=== PATIENT | female | born 1990 | race Caucasian/White ===

== ENCOUNTER → 2024-09-22 | Outpatient (CLI) | payer OTHER ==
[2024-09-22 14:53] LABS: HCG, SERUM QUANTITATIVE < 2.6 MIU/ML (<4.2)
[2024-09-22 14:57] LABS: TOTAL 25(OH) VITAMIN D 31.2 NG/ML (20.0-100.0)
[2024-09-22 14:58] LABS: FOLLICLE STIMULATING HORMONE 5.9 mIU/ML; LUTEINIZING HORMONE 3.1 mIU/ML
[2024-09-22 14:59] LABS: ESTRADIOL 30.3 PG/ML
[2024-09-22 15:09] LABS: HEPATITIS B SURFACE ANTIGEN NEGATIVE (NEGATIVE)
[2024-09-22 15:16] LABS: Trichomonas vaginalis (AMP) NOT DETECTED (NEGATIVE)
[2024-09-22 15:40] LABS: GC DNA AMPLIFICATION NEGATIVE (NEGATIVE)
[2024-09-22 18:17] LABS: HEPATITIS C VIRUS ABY INDEX 0.03 INDEX (<0.8)
[2024-09-24 14:52] LABS: CYTOMEGALOVIRUS ANTIBODY IGG > 10.00 U/mL (<0.60); CYTOMEGALOVIRUS IgM ANTIBODY < 30.00 AU/mL (<30.00); HERPES ZOSTER, VARICELLA IgG 1.59 S/CO (>=1.00)
== END ==
LOC: M LAB 12:42
DX: Z31.49 Encounter for other procreative investigation and testing (principal); E55.9 Vitamin D deficiency, unspecified; Z31.430 Encounter of female for testing for genetic disease carrier status for procreative management

== ENCOUNTER → 2024-11-26 | Outpatient (CLI) | payer OTHER | LOC: M WHC 09:51 | PROVIDERS: ATTEND Specialist | DX: N92.6 Irregular menstruation, unspecified (principal) ==

== ENCOUNTER → 2025-01-28 | Outpatient (CLI) | payer OTHER ==
[2025-01-28 17:43] LABS: PLATELET COUNT, AUTOMATED 229 10^3/uL (150-450)
[2025-01-28 18:31] LABS: HIV 1&2 SCREEN NEGATIVE (NEGATIVE)
[2025-01-28 18:39] LABS: HEPATITIS C VIRUS ABY INDEX < 0.02 INDEX (<0.8)
[2025-01-28 18:53] LABS: Trichomonas vaginalis (AMP) NOT DETECTED (NEGATIVE)
[2025-01-28 19:16] LABS: GC DNA AMPLIFICATION NEGATIVE (NEGATIVE)
== END ==
LOC: M PLALAB 15:36
PROVIDERS: ATTEND Specialist
DX: Z34.01 Encounter for supervision of normal first pregnancy, first trimester (principal)

== ENCOUNTER → 2025-03-16 | Outpatient (REF) | payer OTHER | LOC: M PLALAB 13:38 | PROVIDERS: ATTEND Nurse Practitioner Family | DX: N89.8 Other specified noninflammatory disorders of vagina (principal) ==

== ENCOUNTER → 2025-03-29 | Outpatient (CLI) | payer OTHER | LOC: M RAD 15:24 | PROVIDERS: ATTEND Specialist | DX: Z36.89 Encounter for other specified antenatal screening (principal); Z3A.19 19 weeks gestation of pregnancy ==

== ENCOUNTER → 2025-05-05 | Outpatient (CLI) | payer OTHER ==
[2025-05-05 14:59] LABS: PLATELET COUNT, AUTOMATED 231 10^3/uL (150-450)
[2025-05-05 15:03] LABS: GLUCOSE CHALLENGE TEST 1 HOUR 151 MG/DL (LESS THAN 140)
[2025-05-05 15:40] LABS: HIV 1&2 SCREEN NEGATIVE (NEGATIVE)
[2025-05-05 15:48] LABS: HEPATITIS C VIRUS ABY INDEX < 0.02 INDEX (<0.8)
[2025-05-05 16:12] LABS: Trichomonas vaginalis (AMP) NOT DETECTED (NEGATIVE)
[2025-05-05 16:36] LABS: GC DNA AMPLIFICATION NEGATIVE (NEGATIVE)
== END ==
LOC: M PLALAB 09:47
PROVIDERS: ATTEND Obstetrics & Gynecology
DX: O09.812 Supervision of pregnancy resulting from assisted reproductive technology, second trimester (principal); Z3A.00 Weeks of gestation of pregnancy not specified

== ENCOUNTER → 2025-05-12 | Outpatient (CLI) | payer OTHER | LOC: M LAB 06:55 | PROVIDERS: ATTEND Obstetrics & Gynecology | DX: O99.810 Abnormal glucose complicating pregnancy (principal) ==

== ENCOUNTER → 2025-05-31 | Outpatient (CLI) | payer OTHER ==
[2025-05-31 11:08] LABS: PLATELET COUNT, AUTOMATED 217 10^3/uL (150-450)
[2025-05-31 11:11] LABS: LDH LACTATE DEHYDROGENASE 200 U/L (120-246)
[2025-05-31 11:12] LABS: ALT/SGPT 76 U/L (7.0-40); AST/SGOT 54 U/L (<34); CREATININE FOR GFR 0.74 MG/DL (0.55-1.30); GLOMERULAR FILTRATION RATE > 90.0 (>60)
[2025-05-31 11:33] LABS: TOTAL PROTEIN,RANDOM URINE 18.9 MG/DL (0.0-14.0)
== END ==
LOC: M PLALAB 08:25
PROVIDERS: ATTEND Nurse Practitioner Family
DX: R03.0 Elevated blood-pressure reading, without diagnosis of hypertension (principal)

== ENCOUNTER → 2025-06-23 | Outpatient (CLI) | payer OTHER ==
[~2025-06-23] MED LIST: ACET-907 PO; CLAR5TAB11 PO; MULTTAB20 PO; PEPC1TAB5 PO
[2025-06-23 15:17] LABS: APPEARANCE, URINE HAZY (CLEAR); BACTERIA, URINE AUTO NEGATIVE (NEGATIVE); BILIRUBIN, URINE AUTO NEGATIVE (NEGATIVE); BLOOD, URINE BLOOD NEGATIVE (NEGATIVE); GLUCOSE, URINE (UA) AUTO NEGATIVE (NEGATIVE); KETONE, URINE AUTO NEGATIVE (NEGATIVE); LEUKOCYTE ESTERASE, URINE AUTO NEGATIVE (NEGATIVE); MUCUS, URINE SMALL (NEGATIVE); NITRITE, URINE AUTO NEGATIVE (NEGATIVE); PROTEIN, URINE AUTO 3+ mg/dL (NEGATIVE); RBC, URINE AUTO 0 /HPF (0-3); SPECIFIC GRAVITY URINE AUTO 1.019 (1.002-1.035); SQUAMOUS EPITHELIAL CELL UR AU 0 /HPF (0-6); UROBILINOGEN, URINE AUTO 0.2 mg/dL (0.0-2.0); WBC, URINE AUTO 2 /HPF (0-3)
[2025-06-23 15:18] LABS: PLATELET COUNT, AUTOMATED 228 10^3/uL (150-450)
[2025-06-23 15:45] LABS: LDH LACTATE DEHYDROGENASE 249 U/L (120-246)
[2025-06-23 15:46] LABS: ALT/SGPT 48 U/L (7.0-40); AST/SGOT 40 U/L (<34); CREATININE FOR GFR 0.81 MG/DL (0.55-1.30); GLOMERULAR FILTRATION RATE > 90.0 (>60)
[2025-06-23 15:50] LABS: TOTAL PROTEIN,RANDOM URINE 613.1 MG/DL (0.0-14.0)
== END ==
LOC: M PLALAB 14:30
PROVIDERS: ATTEND Advanced Practice Midwife
DX: Z34.83 Encounter for supervision of other normal pregnancy, third trimester (principal)

== ENCOUNTER 2025-06-24 15:08 | Outpatient (CLI) | payer OTHER ==
[~2025-06-24] VITALS: Ht 157.5 cm; Wt 101.4 kg
[2025-06-24] MEDS ORDERED: MULTTAB20 PO (15:28)
[2025-06-24] MEDS ORDERED: PEPC1TAB5 PO (15:28)
[2025-06-24 15:32] VITALS: BP 136/84
[2025-06-24] MEDS ORDERED: HOME MED LIST COMPLETE! XX SCH (15:40)
[2025-06-24] MEDS: BETAMETHASONE SOLUSPAN 6 MG/ML 5 ML VIAL IM ONE (16:11)
== END 2025-06-24 17:45 | disposition home or self-care (01) ==
LOC: M LDO 15:08
PROVIDERS: ATTEND Advanced Practice Midwife
DX: O14.93 Unspecified pre-eclampsia, third trimester (principal); O09.813 Supervision of pregnancy resulting from assisted reproductive technology, third trimester; O26.23 Pregnancy care for patient with recurrent pregnancy loss, third trimester; Z3A.31 31 weeks gestation of pregnancy
CPT/HCPCS: 59025; 76816; 76820; 96372; G0463; J0702

== ENCOUNTER 2025-06-25 15:44 | Outpatient (CLI) | payer OTHER ==
[~2025-06-25] VITALS: Ht 157.5 cm; Wt 103.1 kg
[~2025-06-25 15:44] MED LIST changes: -ACET-907 PO; -CLAR5TAB11 PO
[2025-06-25 16:00] VITALS: BP 139/73; O2SAT 100
[2025-06-25] MEDS ORDERED: HOME MED LIST COMPLETE! XX SCH (16:05)
[2025-06-25] MEDS: BETAMETHASONE SOLUSPAN 6 MG/ML 5 ML VIAL IM ONE (16:12)
== END 2025-06-25 16:23 | disposition home or self-care (01) ==
LOC: M LDO 15:44
PROVIDERS: ATTEND Obstetrics & Gynecology
DX: O09.813 Supervision of pregnancy resulting from assisted reproductive technology, third trimester (principal); O14.93 Unspecified pre-eclampsia, third trimester; Z3A.31 31 weeks gestation of pregnancy
CPT/HCPCS: 59025; 96372; G0463; J0702

== ENCOUNTER 2025-07-02 12:25 | Outpatient (CLI) | payer OTHER ==
[2025-07-02] VITALS (10 sets, daily range): BP systolic 135–167; BP diastolic 89–107
[~2025-07-02] VITALS: Ht 157.5 cm; Wt 105.1 kg
[2025-07-02] MEDS ORDERED: ACET-907 PO (13:04)
[2025-07-02] MEDS ORDERED: CLAR5TAB11 PO (13:04)
[2025-07-02 14:22] LABS: TOTAL PROTEIN,RANDOM URINE 1668.0 MG/DL (0.0-14.0)
[2025-07-02 14:45] LABS: BASO # 0.0 10^3/uL (0.0-0.2); BASO % 0.3 % (0.0-1.0); EOS # 0.1 10^3/uL (0.0-0.5); EOS % 1.1 % (0.0-3.0); LYMPH # 1.9 10^3/uL (1.5-5.0); LYMPH % 20.5 % (24.0-44.0); MONO # 0.8 10^3/uL (0.0-0.8); MONO % 8.3 % (2.0-8.0); NEUTROPHILS # 6.3 10^3/uL (1.5-8.5); NEUTROPHILS % 69.5 % (36.0-66.0); PLATELET COUNT, AUTOMATED 194 10^3/uL (150-450)
[2025-07-02 15:10] LABS: LDH LACTATE DEHYDROGENASE 228 U/L (120-246)
[2025-07-02 15:11] LABS: ALT/SGPT 37 U/L (7.0-40); AST/SGOT 38 U/L (<34); CALCIUM LEVEL 8.1 MG/DL (8.5-10.1); CARBON DIOXIDE LEVEL 22 MMOL/L (20-31); CHLORIDE LEVEL 108 MMOL/L (98-107); CREATININE FOR GFR 0.79 MG/DL (0.55-1.30); GLOMERULAR FILTRATION RATE > 90.0 (>60); POTASSIUM SERUM 4.4 MMOL/L (3.5-5.1); SODIUM LEVEL 138 MMOL/L (136-145)
[2025-07-02] MEDS ORDERED: HOME MED LIST COMPLETE! XX SCH (15:35)
[2025-07-02] MEDS: LABETALOL 100 MG TAB PO ONE (15:39)
[2025-07-07] MEDS ORDERED: LABE100T91 PO (07:58)
[2025-07-07] MEDS ORDERED: PROG1CAP9 PO (07:58)
[2025-07-07] MEDS ORDERED: ESTR2TAB3 PO (07:58)
[2025-07-07] MEDS ORDERED: ECOT81TA5 PO (14:09)
[2025-07-07] MEDS ORDERED: FOLI1TAB11 PO (14:09)
[2025-07-07] MEDS ORDERED: VITA100093 PO (14:09)
[2025-07-07] MEDS ORDERED: CHOL500T10 PO (14:09)
[2025-07-07] MEDS ORDERED: PROBCAP2 PO (14:09)
[2025-07-07] MEDS ORDERED: OMEG10002 PO (14:09)
== END 2025-07-02 16:28 | disposition home or self-care (01) ==
LOC: M LDO 12:25
PROVIDERS: ATTEND Obstetrics & Gynecology
DX: O14.93 Unspecified pre-eclampsia, third trimester (principal); O99.353 Diseases of the nervous system complicating pregnancy, third trimester; O09.813 Supervision of pregnancy resulting from assisted reproductive technology, third trimester; O26.23 Pregnancy care for patient with recurrent pregnancy loss, third trimester; G56.03 Carpal tunnel syndrome, bilateral upper limbs; Z3A.34 34 weeks gestation of pregnancy
CPT/HCPCS: 59025; 80053; 82247; 82570; 83615; 84156; 84450; 84460; 84550; 85025; G0463

== ENCOUNTER → 2025-07-08 | Outpatient (CLI) | payer OTHER ==
[~2025-07-08] MED LIST changes: +ACET-907 PO; +CHOL500T10 PO; +CLAR5TAB11 PO; +ECOT81TA5 PO; +ESTR2TAB3 PO; +FOLI1TAB11 PO; +LABE100T91 PO; +OMEG10002 PO; +PROBCAP2 PO; +PROG1CAP9 PO; +VITA100093 PO
[2025-07-08 17:29] LABS: PLATELET COUNT, AUTOMATED 205 10^3/uL (150-450)
== END ==
LOC: M PLALAB 15:27
PROVIDERS: ATTEND Specialist
DX: O14.93 Unspecified pre-eclampsia, third trimester (principal)

== ENCOUNTER 2025-07-11 21:18 | Inpatient (IN) | payer OTHER ==
[~2025-07-11] VITALS: Ht 157.5 cm; Wt 108.5 kg
[2025-07-11] MEDS: BICITRA 30 ML SOLN UDC PO ONE (07:51)
[2025-07-11] MEDS: ceFAZolin SODIUM 3 GM in DEXTROSE 5% (D5W) MINI-BAG PLU 100 ML IV ONE (07:51)
[2025-07-11 21:34] VITALS: BP 144/86
[2025-07-11 21:36] VITALS: BP 144/86
[2025-07-11 21:58] VITALS: BP 156/88
[2025-07-11 22:24] LABS: BASO # 0.1 10^3/uL (0.0-0.2); BASO % 0.6 % (0.0-1.0); EOS # 0.4 10^3/uL (0.0-0.5); EOS % 3.5 % (0.0-3.0); LYMPH # 2.4 10^3/uL (1.5-5.0); LYMPH % 21.9 % (24.0-44.0); MONO # 1.1 10^3/uL (0.0-0.8); MONO % 10.4 % (2.0-8.0); NEUTROPHILS # 6.9 10^3/uL (1.5-8.5); NEUTROPHILS % 63.2 % (36.0-66.0); PLATELET COUNT, AUTOMATED 221 10^3/uL (150-450)
[2025-07-11 22:26] VITALS: BP 171/94
[2025-07-11 22:27] VITALS: BP 164/93
[2025-07-11 22:46] LABS: LDH LACTATE DEHYDROGENASE 290 U/L (120-246)
[2025-07-11 22:47] LABS: ALT/SGPT 39 U/L (7.0-40); AST/SGOT 39 U/L (<34); CREATININE FOR GFR 0.96 MG/DL (0.55-1.30); GLOMERULAR FILTRATION RATE 80.6 (>60)
[2025-07-11] MEDS ORDERED: TRANEXAMIC ACID INJection 1,000 MG in NS 100 ML IV PRN (23:10)
[2025-07-11] MEDS ORDERED: OXYTOCIN INJ 10UNITS/ML 1ML VIAL IM PRN (23:10)
[2025-07-11] MEDS ORDERED: CARBOPROST TROMETHAMINE 250 MCG/ML AMP IM PRN (23:10)
[2025-07-11] MEDS: LR 1,000 ML IV SCH (23:34)
[2025-07-12] VITALS (35 sets, daily range): BP systolic 123–176; BP diastolic 74–99
[2025-07-12] MEDS: LABETALOL 200 MG TAB PO STA ×2 (00:06→17:22)
[2025-07-12] MEDS: CEPACOL LOZENGE PO PRN (00:12)
[2025-07-12] MEDS ORDERED: PHENYLephrine 500MCG 5ML (100MCG/ML) SYRINGE As Ordered ONE (07:13)
[2025-07-12] MEDS ORDERED: ONDANSETRON 4MG/2ML VIAL As Ordered ONE (07:14)
[2025-07-12] MEDS ORDERED: OXYTOCIN 30UNITS IN 0.9% NaCl 500ML IV BAG IV ONE (07:14)
[2025-07-12] MEDS ORDERED: dexAMETHasone 4 MG/ML 1 ML VIAL As Ordered ONE (07:14)
[2025-07-12] MEDS ORDERED: ACETAMINOPHEN 1000MG/100ML IV BAG As Ordered ONE (07:15)
[2025-07-12] MEDS ORDERED: KETOROLAC 30 MG/ML 1 ML VIAL As Ordered ONE (07:15)
[2025-07-12] MEDS ORDERED: MORPHINE PRES-FREE INJ 10 MG/10 ML VIAL As Ordered ONE (07:20)
[2025-07-12 08:43] LABS: CORD GAS ABE A -7.3; CORD GAS HCO3 A 19.9 MMOL/L; CORD GAS O2 SAT A 53.1 %; CORD GAS PCO2 A 46.1 mmHg; CORD GAS PH A 7.253 UNITS; CORD GAS PO2 A 24.1 mmHg; CORD GAS SBC A 17.6 MMOL/L; CORD GAS TCO2 A 21.3 MMOL/L
[2025-07-12 08:45] LABS: CORD GAS ABE V -5.7; CORD GAS HCO3 V 21.3 MMOL/L; CORD GAS O2 SAT V 46.8 %; CORD GAS PCO2 V 47.1 mmHg; CORD GAS PH V 7.274 UNITS; CORD GAS PO2 V 20.7 mmHg; CORD GAS SBC V 18.6 MMOL/L; CORD GAS TCO2 V 22.8 MMOL/L
[2025-07-12] MEDS ORDERED: ANUSOL HC CREAM 30 GM TOP PRN (09:05)
[2025-07-12] MEDS ORDERED: CALCIUM CARBONATE 500 MG CHEW U/D PO PRN (09:05)
[2025-07-12] MEDS ORDERED: PERCOCET 5MG/325MG TAB PO PRN ×2 (09:05)
[2025-07-12] MEDS: LR 1,000 ML IV SCH (09:05)
[2025-07-12] MEDS ORDERED: MORPHINE 4 MG/ML 1 ML VIAL IV PRN (09:05)
[2025-07-12] MEDS: OXYTOCIN DRIP 30 UNITS in IV 1 EA IV SCH (09:05)
[2025-07-12] MEDS ORDERED: RHOGAM 300MCG (1500IU) INJ IM SCH (09:05)
[2025-07-12] MEDS ORDERED: PERCOCET PO (09:15)
[2025-07-12] MEDS ORDERED: COLA100C5 PO (09:15)
[2025-07-12] MEDS ORDERED: IBUP80TA PO (09:15)
[2025-07-12] MEDS: MAG Sulf (L&D) 4 GM/100 ML 4 GM in IV 1 EA IV ONE (09:39)
[2025-07-12] MEDS: MAG Sulf (OBGYN) 20GM/500ML 20,000 MG in IV 1 EA IV SCH (09:53)
[2025-07-12] MEDS: NIFEdipine 10 MG CAP PO ONE ×2 (11:29→14:55)
[2025-07-12] MEDS ORDERED: HYDROMORPHONE HCL 0.5 MG/0.5 ML SYRINGE IV PRN (13:35)
[2025-07-12] MEDS ORDERED: diphenhydrAMINE 50 MG/ML VIAL IV PRN (13:35)
[2025-07-12] MEDS ORDERED: NALOXONE INJ 0.4 MG/1 ML VIAL IV PRN ×2 (13:35)
[2025-07-12] MEDS ORDERED: **NOTE PATIENT COMMENT** MISC XX SCH (13:35)
[2025-07-12] MEDS: NIFEdipine 30 MG XL TAB PO SCH (13:42)
[2025-07-12] MEDS: KETOROLAC 30 MG/ML 1 ML VIAL IV SCH (14:55)
[2025-07-12] MEDS: SLF 3 ML SYR IV SCH (14:56)
[2025-07-12] MEDS ORDERED: hydrALAZINE 20 MG/ML 1 ML VIAL As Ordered ONE (18:20)
[2025-07-12] MEDS: hydrALAZINE 20 MG/ML 1 ML VIAL IV ONE (18:22)
[2025-07-12] MEDS: ONDANSETRON 4MG/2ML VIAL IV ONE (18:56)
[2025-07-12] MEDS: DOCUSATE SODIUM 100 MG CAPSULE PO SCH (20:03)
[2025-07-12] MEDS: LABETALOL 200 MG TAB PO SCH (20:06)
[2025-07-12 20:22] LABS: PLATELET COUNT, AUTOMATED 247 10^3/uL (150-450)
[2025-07-12 20:43] LABS: LDH LACTATE DEHYDROGENASE 368.0 U/L (120-246)
[2025-07-12 20:44] LABS: ALT/SGPT 42.0 U/L (7.0-40); AST/SGOT 46.0 U/L (<34); CREATININE FOR GFR 1.01 MG/DL (0.55-1.30); GLOMERULAR FILTRATION RATE 75.9 (>60)
[2025-07-12] MEDS ORDERED: LABETALOL 200 MG TAB PO SCH (21:00)
[2025-07-12] MEDS: LR 500 ML in IV 1 EA IV ONE (23:00)
[2025-07-13] VITALS (18 sets, daily range): BP systolic 98–135; BP diastolic 56–78; TEMP 97.6–98.6; O2SAT 98–99
[2025-07-13 04:29] LABS: HEPATITIS C VIRUS ABY INDEX 0.03 INDEX (<0.8)
[2025-07-13 04:33] LABS: PLATELET COUNT, AUTOMATED 231 10^3/uL (150-450)
[2025-07-13 05:00] LABS: LDH LACTATE DEHYDROGENASE 283.0 U/L (120-246)
[2025-07-13 05:01] LABS: ALT/SGPT 30.0 U/L (7.0-40); AST/SGOT 34.0 U/L (<34); CREATININE FOR GFR 1.07 MG/DL (0.55-1.30); GLOMERULAR FILTRATION RATE 70.8 (>60)
[2025-07-13] MEDS: PRENATAL VITAMINS CHEWABLE TABLET PO SCH (09:15)
[2025-07-13] MEDS: FERROUS SULFATE 325 MG TAB PO SCH (09:17)
[2025-07-13] MEDS ORDERED: IBUPROFEN 800 MG TAB PO SCH (11:05)
[2025-07-13] MEDS: ACETAMINOPHEN 500 MG TAB PO PRN (14:19)
[2025-07-13] MEDS: IBUPROFEN 800 MG TAB PO PRN (18:22)
[2025-07-14 04:41] VITALS: BP 111/58; O2SAT 98
[2025-07-14] MEDS: MEASLES,MUMPS,RUBELLA VACCINE INJ (MMR-II) SC.IMMUN ONE (09:00)
[2025-07-14 18:32] VITALS: BP 154/82; O2SAT 98
[2025-07-15 06:00] VITALS: BP 132/69; O2SAT 99
[2025-07-15] MEDS: SIMETHICONE 80MG CHEW TAB PO PRN (08:16)
[2025-07-15 12:27] VITALS: BP 140/77
[2025-07-15] MEDS: FLUZONE VACCINE TRI PF(25-26) 0.5ML SYRINGE IM.IMMUN ONE (13:59)
[2025-07-15] MEDS: TETANUS/DIPHTH/ACEL. PERTUSSIS 0.5 ML SYR IM.IMMUN ONE (14:00)
[2025-07-16] MEDS ORDERED: LABE100T40 PO (13:08)
[2025-07-16] MEDS ORDERED: PROC30TA PO (13:08)
== END 2025-07-15 14:05 | disposition home or self-care (01) | DRG 773 ==
LOC: M LDO 21:18 → M LDI 22:58 → M OBS 07-13 18:40
PROVIDERS: ADMIT Advanced Practice Midwife; ATTEND Obstetrics & Gynecology
PROC: 10D00Z1 Extraction of Products of Conception, Low, Open Approach (ICD-10-PCS; principal; 2025-07-12 07:30)
DX: O14.14 Severe pre-eclampsia complicating childbirth (principal); Z3A.34 34 weeks gestation of pregnancy; Z37.0 Single live birth

== ENCOUNTER 2025-07-17 11:06 | Emergency (ER) | payer OTHER ==
[~2025-07-17] VITALS: Ht 157.5 cm; Wt 99.7 kg
[~2025-07-17 11:06] MED LIST changes: +COLA100C5 PO; +IBUP80TA PO; +LABE100T40 PO; +PERCOCET PO; +PROC30TA PO
[2025-07-17 11:12] VITALS: BP 150/82; TEMP 98.9; O2SAT 99
[2025-07-17] MEDS ORDERED: ACET-897 PO (11:47)
[2025-07-17] MEDS ORDERED: LABE100T40 PO (11:47)
[2025-07-17] MEDS ORDERED: COLA100C5 PO (11:47)
[2025-07-18] MEDS ORDERED: NIFE1TAB52 PO (08:56)
[2025-07-18] MEDS ORDERED: LABE20TAB PO (08:56)
== END 2025-07-17 11:23 | disposition admitted as inpatient to this hospital (09) ==
LOC: M ED 11:06
DX: Z53.21 Procedure and treatment not carried out due to patient leaving prior to being seen by health care provider (principal)

== ENCOUNTER 2025-07-17 11:24 | Observation (INO) | payer OTHER ==
[~2025-07-17] VITALS: Ht 157.5 cm; Wt 100.0 kg
[2025-07-17] VITALS (14 sets, daily range): BP systolic 136–179; BP diastolic 73–100; TEMP 99.1–100.1; O2SAT 98–100
[2025-07-17] MEDS ORDERED: MULTTAB20 PO (11:47)
[2025-07-17] MEDS ORDERED: COLA100C5 PO (11:47)
[2025-07-17] MEDS ORDERED: LABE100T40 PO (11:47)
[2025-07-17] MEDS ORDERED: ACET-897 PO (11:47)
[2025-07-17] MEDS: NIFEdipine 10 MG CAP PO SCH (12:23)
[2025-07-17] MEDS ORDERED: HOME MED LIST COMPLETE! XX SCH (12:50)
[2025-07-17 12:55] LABS: PLATELET COUNT, AUTOMATED 273 10^3/uL (150-450)
[2025-07-17] MEDS: IBUPROFEN 800 MG TAB PO ONE (12:59)
[2025-07-17 13:30] LABS: ALT/SGPT 70.0 U/L (7.0-40); AST/SGOT 53.0 U/L (<34); CALCIUM LEVEL 8.7 MG/DL (8.5-10.1); CARBON DIOXIDE LEVEL 28.0 MMOL/L (20-31); CHLORIDE LEVEL 108.0 MMOL/L (98-107); CREATININE FOR GFR 0.95 MG/DL (0.55-1.30); GLOMERULAR FILTRATION RATE 81.6 (>60); POTASSIUM SERUM 4.4 MMOL/L (3.5-5.1); SODIUM LEVEL 144.0 MMOL/L (136-145)
[2025-07-17] MEDS ORDERED: SIMETHICONE 80MG CHEW TAB PO PRN (15:35)
[2025-07-17] MEDS ORDERED: RHOGAM 300MCG (1500IU) INJ IM SCH (15:35)
[2025-07-17] MEDS: NIFEdipine 30 MG XL TAB PO ONE (17:19)
[2025-07-17] MEDS: LABETALOL 200 MG TAB PO SCH (17:19)
[2025-07-17] MEDS: FUROSEMIDE 40 MG/4 ML VIAL IV ONE (18:48)
[2025-07-17 20:13] LABS: PLATELET COUNT, AUTOMATED 309 10^3/uL (150-450)
[2025-07-17 20:41] LABS: ALT/SGPT 68.0 U/L (7.0-40); AST/SGOT 49.0 U/L (<34); CALCIUM LEVEL 8.9 MG/DL (8.5-10.1); CARBON DIOXIDE LEVEL 30.0 MMOL/L (20-31); CHLORIDE LEVEL 104.0 MMOL/L (98-107); CREATININE FOR GFR 0.93 MG/DL (0.55-1.30); GLOMERULAR FILTRATION RATE 83.8 (>60); POTASSIUM SERUM 4.0 MMOL/L (3.5-5.1); SODIUM LEVEL 141.0 MMOL/L (136-145)
[2025-07-17] MEDS: IBUPROFEN 800 MG TAB PO SCH (22:32)
[2025-07-18] VITALS (8 sets, daily range): BP systolic 125–141; BP diastolic 66–80; TEMP 99.3–99.7; O2SAT 98–100
[2025-07-18] MEDS: ACETAMINOPHEN 500 MG TAB PO PRN (05:04)
[2025-07-18 07:50] LABS: PLATELET COUNT, AUTOMATED 304 10^3/uL (150-450)
[2025-07-18] MEDS ORDERED: NIFE1TAB52 PO (08:56)
[2025-07-18] MEDS ORDERED: LABE20TAB PO (08:56)
[2025-07-18] MEDS ORDERED: ENOXAPARIN 40 MG/0.4 ML SYRINGE (J1650 PER 10MG) SC SCH (09:00)
[2025-07-18] MEDS: NIFEdipine 30 MG XL TAB PO SCH (10:05)
[2025-07-18] MEDS: PRENATAL VITAMINS CHEWABLE TABLET PO SCH (10:05)
[2025-07-18] MEDS ORDERED: PILL CUTTER 1 EACH XX PRN (17:15)
[2025-07-19 02:00] VITALS: BP 124/78; O2SAT 98
[2025-07-19 05:28] LABS: BASO # 0.1 10^3/uL (0.0-0.2); BASO % 0.6 % (0.0-1.0); EOS # 0.7 10^3/uL (0.0-0.5); EOS % 7.3 % (0.0-3.0); LYMPH # 2.1 10^3/uL (1.5-5.0); LYMPH % 21.5 % (24.0-44.0); MONO # 1.0 10^3/uL (0.0-0.8); MONO % 10.0 % (2.0-8.0); NEUTROPHILS # 5.4 10^3/uL (1.5-8.5); NEUTROPHILS % 56.6 % (36.0-66.0); PLATELET COUNT, AUTOMATED 303 10^3/uL (150-450)
[2025-07-19 05:49] LABS: ALT/SGPT 53 U/L (7.0-40); AST/SGOT 33 U/L (<34); CALCIUM LEVEL 8.1 MG/DL (8.5-10.1); CARBON DIOXIDE LEVEL 24 MMOL/L (20-31); CHLORIDE LEVEL 109 MMOL/L (98-107); CREATININE FOR GFR 0.80 MG/DL (0.55-1.30); GLOMERULAR FILTRATION RATE > 90.0 (>60); POTASSIUM SERUM 4.2 MMOL/L (3.5-5.1); SODIUM LEVEL 141 MMOL/L (136-145)
[2025-07-19 06:00] VITALS: BP 140/78; O2SAT 100
[2025-07-19] MEDS: DOCUSATE SODIUM 100 MG CAPSULE PO PRN (07:32)
[2025-07-19] MEDS: MEASLES,MUMPS,RUBELLA VACCINE INJ (MMR-II) SC.IMMUN ONE (09:00)
[2025-07-19 10:00] VITALS: BP 129/53; O2SAT 98
[2025-07-19 10:14] VITALS: BP 129/53
== END 2025-07-19 13:05 | disposition home or self-care (01) ==
LOC: M LDO 11:24 → M OBS 15:49
PROVIDERS: ADMIT Obstetrics & Gynecology; ATTEND Obstetrics & Gynecology
DX: O11.5 Pre-existing hypertension with pre-eclampsia, complicating the puerperium (principal); O90.81 Anemia of the puerperium; D62 Acute posthemorrhagic anemia; O88.23 Thromboembolism in the puerperium; O12.05 Gestational edema, complicating the puerperium; O86.4 Pyrexia of unknown origin following delivery; Z79.899 Other long term (current) drug therapy
CPT/HCPCS: 36415; 36430; 80053; 85025; 85027; 86850; 86900; 86901; 86920; 96374; J1938; P9016; S0191